=== PATIENT | male | born 1945 | race Caucasian/White ===

== ENCOUNTER 2021-04-09 02:25 | Inpatient (IN) | payer MEDICARE, BC ==
[~2021-04-09] VITALS: Ht 167.6 cm; Wt 87.0 kg
[~2021-04-09 02:25] MED LIST: CARDURA 2MG TAB2 MG PO; COREG 25MG TAB25 MG PO; ECOTRIN81 MG PO; FARXIGA5 MG PO; GLUCOPHAGE XR500 MG PO; GLUCOTROL 10 MG10 MG PO; HYGROTON TAB 2525 MG PO; IMDUR ER TAB 3030 MG PO; NORVASC10 MG PO; PROTONIX40 M1 PO; TRANDATE 100 M100 MG PO
[2021-04-09 03:02] LABS: HEMOGLOBIN 12.3 gm/dl (14.0-17.5); RED BLOOD COUNT 4.22 M/UL (4.20-5.50); WHITE BLOOD COUNT 4.4 K/UL (4.5-11.0)
[2021-04-09] MEDS ORDERED: COREG 25MG TAB25 MG PO (08:20)
[2021-04-09] MEDS ORDERED: LEVOTHYROXINE25 MC1 PO (08:22)
[2021-04-09] MEDS ORDERED: PROTONIX 40 MG40 M1 PO (08:23)
[2021-04-09] MEDS ORDERED: LISINOPRIL10 MG PO (08:23)
[2021-04-09] MEDS ORDERED: VITAMIN C 500500 MG PO (08:26)
[2021-04-09] MEDS ORDERED: LEVEMIR FL100 UNIT/1 SQ (08:26)
[2021-04-10 07:31] LABS: HEMOGLOBIN 11.5 gm/dl (14.0-17.5); RED BLOOD COUNT 4.09 M/UL (4.20-5.50); WHITE BLOOD COUNT 3.8 K/UL (4.5-11.0)
[2021-04-11 03:43] LABS: HEMOGLOBIN 11.4 gm/dl (14.0-17.5); RED BLOOD COUNT 3.94 M/UL (4.20-5.50)
[2021-04-11 03:45] LABS: WHITE BLOOD COUNT 4.8 K/UL (4.5-11.0)
[2021-04-11 12:48] LABS: HEMOGLOBIN 11.7 gm/dl (14.0-17.5); RED BLOOD COUNT 3.98 M/UL (4.20-5.50); WHITE BLOOD COUNT 14.9 K/UL (4.5-11.0)
== END 2021-04-11 17:31 | disposition short-term general hospital (02) | DRG 208 ==
LOC: ER1 02:25 → PROG CARE 03:49 → CDU 03:49 → PROG CARE 05:32 → CCU 04-11 10:38
PROVIDERS: Internal Medicine; Internal Medicine Cardiovascular Disease; Internal Medicine Nephrology; Physician Assistant; ADMIT Internal Medicine
PROC: B24BZZZ Ultrasonography of Heart with Aorta (ICD-10-PCS; principal; 2021-04-09)
PROC: 5A1935Z Respiratory Ventilation, Less than 24 Consecutive Hours (ICD-10-PCS; 2021-04-11)
PROC: B2111ZZ Fluoroscopy of Multiple Coronary Arteries using Low Osmolar Contrast (ICD-10-PCS; 2021-04-11)
PROC: 4A023N7 Measurement of Cardiac Sampling and Pressure, Left Heart, Percutaneous Approach (ICD-10-PCS; 2021-04-11)
PROC: 0BH17EZ Insertion of Endotracheal Airway into Trachea, Via Natural or Artificial Opening (ICD-10-PCS; 2021-04-11)
PROC: 02HV33Z Insertion of Infusion Device into Superior Vena Cava, Percutaneous Approach (ICD-10-PCS; 2021-04-11)
PROC: B548ZZA Ultrasonography of Superior Vena Cava, Guidance (ICD-10-PCS; 2021-04-11)
DX: J96.01 Acute respiratory failure with hypoxia (principal); N17.0 Acute kidney failure with tubular necrosis; I50.33 Acute on chronic diastolic (congestive) heart failure; I21.A1 Myocardial infarction type 2; T88.6XXA Anaphylactic reaction due to adverse effect of correct drug or medicament properly administered, initial encounter; I13.0 Hypertensive heart and chronic kidney disease with heart failure and stage 1 through stage 4 chronic kidney disease, or unspecified chronic kidney disease; E87.2 Acidosis; Z20.822 Contact with and (suspected) exposure to COVID-19; E66.9 Obesity, unspecified; E03.9 Hypothyroidism, unspecified; D69.6 Thrombocytopenia, unspecified; E78.5 Hyperlipidemia, unspecified; N18.30 Chronic kidney disease, stage 3 unspecified; E11.22 Type 2 diabetes mellitus with diabetic chronic kidney disease; I25.10 Atherosclerotic heart disease of native coronary artery without angina pectoris; Z95.1 Presence of aortocoronary bypass graft; Z88.0 Allergy status to penicillin; Z82.49 Family history of ischemic heart disease and other diseases of the circulatory system; Z98.890 Other specified postprocedural states; Z68.29 Body mass index [BMI] 29.0-29.9, adult
CPT/HCPCS: 31500; 36415; 36600; 71045; 80053; 82550; 82553; 82570; 82803; 82962; 83036; 83520; 83605; 83735; 83874; 83880; 84156; 84439; 84443; 84484; 85025; 85027; 85347; 85384; 85610; 85730; 87040; 93005; 93308; 94002; 96374; 96375; 99152; 99153; 99285; C1769; C1884; C1887; C1894; J0171; J0461; J1200; J1265; J1644; J1940; J2250; J2370; J2405; J2930; J3010; J3370; J7030; J7040; J7050; J7070; Q9965; U0002

== ENCOUNTER 2021-09-22 01:24 | Observation (INO) | payer MEDICARE, BC ==
[~2021-09-22] VITALS: Ht 167.6 cm; Wt 79.4 kg
[~2021-09-22 01:24] MED LIST changes: +GLIPIZIDE10 MG PO; +GLUCOPHAGE 500500 MG PO; -GLUCOPHAGE XR500 MG PO; -GLUCOTROL 10 MG10 MG PO; -IMDUR ER TAB 3030 MG PO; +ISOSORBIDE MONO30 MG PO; +LEVEMIR FL100 UNIT/1 SQ; +LEVOTHYROXINE25 MCG PO; +LISINOPRIL10 MG PO; +PROTONIX 40 MG40 M1 PO; +VITAMIN C 500500 MG PO
[2021-09-22 02:37] LABS: HEMOGLOBIN 11.4 gm/dl (14.0-17.5); RED BLOOD COUNT 3.96 M/UL (4.20-5.50); WHITE BLOOD COUNT 4.7 K/UL (4.5-11.0)
[2021-09-22] MEDS ORDERED: LASIX40 MG PO (10:18)
[2021-09-22] MEDS ORDERED: ENTRESTO 49 MG1 EACH PO (13:10)
[2021-09-22] MEDS ORDERED: CARVEDILOL6.25 MG PO (13:10)
[2021-09-22] MEDS ORDERED: FUROSEMIDE20 MG PO (13:10)
[2021-09-22] MEDS ORDERED: ATORVASTATIN CA80 MG PO (13:11)
[2021-09-22] MEDS ORDERED: SPIRONOLACTONE25 MG PO (13:11)
[2021-09-22] MEDS ORDERED: POTASSIUM CHLO10 MEQ PO (13:11)
[2021-09-22] MEDS ORDERED: CLOPIDOGREL75 MG PO (13:12)
== END 2021-09-23 09:50 | disposition home or self-care (01) ==
LOC: ER1 01:24 → CDU 03:37 → PROG CARE 03:37
PROVIDERS: Nurse Practitioner; Student in an Organized Health Care Education/Training Program; ADMIT Internal Medicine
DX: I13.0 Hypertensive heart and chronic kidney disease with heart failure and stage 1 through stage 4 chronic kidney disease, or unspecified chronic kidney disease (principal); E11.22 Type 2 diabetes mellitus with diabetic chronic kidney disease; N18.30 Chronic kidney disease, stage 3 unspecified; I50.33 Acute on chronic diastolic (congestive) heart failure; D63.1 Anemia in chronic kidney disease; I25.10 Atherosclerotic heart disease of native coronary artery without angina pectoris; E78.5 Hyperlipidemia, unspecified; E03.9 Hypothyroidism, unspecified; R77.8 Other specified abnormalities of plasma proteins; D69.6 Thrombocytopenia, unspecified; K21.9 Gastro-esophageal reflux disease without esophagitis; H54.40 Blindness, one eye, unspecified eye; I45.10 Unspecified right bundle-branch block; Z95.1 Presence of aortocoronary bypass graft; Z88.0 Allergy status to penicillin; Z91.041 Radiographic dye allergy status; Z79.82 Long term (current) use of aspirin; Z79.4 Long term (current) use of insulin; Z79.899 Other long term (current) drug therapy; Z20.822 Contact with and (suspected) exposure to COVID-19
CPT/HCPCS: 36415; 36600; 71045; 80048; 80053; 82550; 82553; 82803; 82962; 83880; 84484; 85025; 85610; 85730; 96374; 96375; 96376; 99285; G0378; J1644; J1940; U0002